=== PATIENT | male | born 1990 | race Caucasian/White ===

== ENCOUNTER 2019-02-19 06:01 | Emergency (ER) | payer BC ==
[2019-02-19] MEDS ORDERED: Sodium Chloride 0.9% 1,000 ML IV ONE (06:06)
[2019-02-19] MEDS ORDERED: Ondansetron 4 MG/2 ML SDV IVPUSH ONE (06:06)
[2019-02-19] MEDS ORDERED: Ketorolac 30 MG/ML SDV IVPUSH ONE (06:06)
[2019-02-19 06:31] LABS: BLOOD UREA NITROGEN,BUN 12 mg/dL (7.0-18.0); CARBON DIOXIDE,CO2 23.5 mmol/L (21.0-32.0); CHLORIDE,CL 101 mmol/L (98-107); GLUCOSE RANDOM 122 mg/dL (74-106); LIPASE 85 U/L (73-393); POTASSIUM,K 3.9 mmol/L (3.5-5.1); SODIUM,NA 140 mmol/L (136-148)
--- NOTE | 2019-02-19 06:48 | EDM.PDOC ---
<Silverio Pavon J - Last Filed: 02/19/19 06:45> ED HPI GENERAL MEDICAL PROBLEM - General Chief Complaint: Abdominal Pain Stated Complaint: LOWER RIGHT ABDOMINAL PAIN Time Seen by Provider: 02/19/19 10:20 - History of Present Illness INITIAL COMMENTS - FREE TEXT/NARRATIVE: HISTORY AND PHYSICAL: History of present illness: Patient's 28-year-old white male presents with a concern of right upper abdominal pain 1 day he's had associated nausea denies vomiting denies diarrhea denies trauma denies prior abdominal surgery has been no fever no chills he denies history of known gallbladder disease denies history of pancreatitis Review of systems: As per history of present illness and below otherwise all systems reviewed and negative. Past medical history: As per history of present illness and as reviewed below otherwise noncontributory. Surgical history: As per history of present illness and as reviewed below otherwise noncontributory. Social history: No reported history of drug or alcohol abuse. Family history: As per history of present illness and as reviewed below otherwise noncontributory. Physical exam: HEENT: Atraumatic, normocephalic, pupils reactive, negative for conjunctival pallor or scleral icterus, mucous membranes moist, throat clear, neck supple, nontender, trachea midline. Lungs: Clear to auscultation, breath sounds equal bilaterally, chest nontender. Heart: S1S2, regular, negative for clicks, rubs, or JVD. Abdomen: Soft, nondistended, tenderness to deep palpation in the right upper quadrant no rebound Negative for masses or hepatosplenomegaly. Negative for costovertebral tenderness. Pelvis: Stable nontender. Genitourinary: Deferred. Rectal: Deferred. Extremities: Atraumatic, negative for cords or calf pain. Neurovascular unremarkable. Neuro: Awake, alert, oriented. Cranial nerves II through XII unremarkable. Cerebellum unremarkable. Motor and sensory unremarkable throughout. Exam nonfocal. Diagnostics: CBC CMP lipase UA right upper quadrant ultrasound Therapeutics: Saline 1 L bolus Toradol 30 mg IV Zofran 4 mg IV Impression: #1 right-sided abdominal pain Definitive disposition and diagnosis as appropriate pending reevaluation and review of above. RUQ Pain Score (Numeric/FACES): 4 - Related Data Allergies Allergy/AdvReac Type Severity Reaction Status Date / Time No Known Allergies Allergy Verified 02/19/19 06:16 Home Meds: Home Meds . [No Known Home Meds] 02/19/19 [History] Past Medical History - Past Health History Medical/Surgical History: Denies Medical/Surgical History Social & Family History - Family History Family Medical History: Noncontributory - Tobacco Use Smoking Status *Q: Never Smoker Second Hand Smoke Exposure: No - Caffeine Use Caffeine Use: Reports: None - Recreational Drug Use Recreational Drug Use: No ED ROS GENERAL - Review of Systems Review Of Systems: ROS reveals no pertinent complaints other than HPI. ED EXAM, GENERAL - Physical Exam Exam: See Below (See dictation) Course - Vital Signs Last Recorded V/S: Last Vital Signs Temp 97.3 F 02/19/19 06:13 Pulse 63 02/19/19 06:29 Resp 15 02/19/19 06:29 BP 148/74 H 02/19/19 06:13 Pulse Ox 98 02/19/19 06:29 - Orders/Labs/Meds Orders: Active Orders 24 hr Category Date Time Status Abdomen Pelvis w Cont [CT] Stat Exams 02/19/19 07:27 Taken Saline Lock Insert [OM.PC] Stat Oth 02/19/19 06:06 Ordered Labs: Laboratory Tests 02/19/19 02/19/19 02/19/19 Range/Units 06:00 06:00 08:05 WBC 11.21 H (4.0-11.0) K/uL RBC 5.82 (4.50-5.90) M/uL Hgb 16.7 (13.0-17.0) g/dL Hct 48.1 (38.0-50.0) % MCV 82.6 (80.0-98.0) fL MCH 28.7 (27.0-32.0) pg MCHC 34.7 (31.0-37.0) g/dL RDW Std Deviation 39.9 (28.0-62.0) fl RDW Coeff of Jose 13 (11.0-15.0) % Plt Count 249 (150-400) K/uL MPV 8.80 (7.40-12.00) fL Neut % (Auto) 51.3 (48.0-80.0) % Lymph % (Auto) 42.2 H (16.0-40.0) % [place] % (Auto) 6.2 (0.0-15.0) % Eos % (Auto) 0.1 (0.0-7.0) % Baso % (Auto) 0.2 (0.0-1.5) % Neut # (Auto) 5.8 H (1.4-5.7) K/uL Lymph # (Auto) 4.7 H (0.6-2.4) K/uL [place] # (Auto) 0.7 (0.0-0.8) K/uL Eos # (Auto) 0.0 (0.0-0.7) K/uL Baso # (Auto) 0.0 (0.0-0.1) K/uL Nucleated RBC % 0.0 /100WBC Nucleated RBCs # 0 K/uL Sodium 140 (136-148) mmol/L Potassium 3.9 (3.5-5.1) mmol/L Chloride 101 (98-107) mmol/L Carbon Dioxide 23.5 (21.0-32.0) mmol/L BUN 12 (7.0-18.0) mg/dL Creatinine 1.1 (0.8-1.3) mg/dL Est Cr Clr Drug Dosing 91.03 mL/min Estimated GFR (MDRD) > 60.0 ml/min Glucose 122 H (74-106) mg/dL Calcium 9.3 (8.5-10.1) mg/dL Total Bilirubin 0.6 (0.2-1.0) mg/dL AST 28 (15-37) IU/L ALT 65 H (14-63) IU/L Alkaline Phosphatase 74 (46-116) U/L Total Protein 8.9 H (6.4-8.2) g/dL Albumin 4.7 (3.4-5.0) g/dL Globulin 4.2 H (2.6-4.0) g/dL Albumin/Globulin Ratio 1.1 (0.9-1.6) Lipase 85 (73-393) U/L Urine Color YELLOW Urine Appearance CLEAR Urine pH 7.0 (5.0-8.0) Ur Specific [place]yle 1.015 (1.001-1.035) Urine Protein NEGATIVE (NEGATIVE) mg/dL Urine Glucose (UA) NEGATIVE (NEGATIVE) mg/dL Urine Ketones >=80 (NEGATIVE) mg/dL Urine Occult Blood NEGATIVE (NEGATIVE) Urine Nitrite NEGATIVE (NEGATIVE) Urine Bilirubin SMALL H (NEGATIVE) Urine Ictotest NEGATIVE Urine Urobilinogen 0.2 (<2.0) EU/dL Ur Leukocyte Esterase NEGATIVE (NEGATIVE) Meds: Medications Discontinued Medications Generic Name Dose Route Start Last Admin Trade Name Mathew PRN Reason Stop Dose Admin Sodium Chloride 1,000 mls @ 999 mls/hr 02/19/19 06:06 02/19/19 06:15 Normal Saline IV 02/19/19 07:06 999 mls/hr BOLUS ONE Administration Iopamidol 100 ml 02/19/19 08:06 02/19/19 08:07 Isovue Multipack-370 (76%) IVPUSH 02/19/19 08:07 100 ml ONETIME STA Administration Ketorolac Tromethamine 30 mg 02/19/19 06:06 02/19/19 06:14 Toradol IVPUSH 02/19/19 06:07 30 mg ONETIME ONE Administration Ondansetron HCl 4 mg 02/19/19 06:06 02/19/19 06:14 Zofran IVPUSH 02/19/19 06:07 4 mg ONETIME ONE Administration Departure - Departure Disposition: Home, Self-Care 01 Clinical Impression: Abdominal pain - Discharge Information Referrals: PCP,None [Primary Care Provider] - Forms: ED Department Discharge Additional Instructions: Medication as prescribed Return if symptoms persist or worsen Knott diet as discussed ER referral for general surgery for consideration of HIDA scan [facility] - General Surgery [address], [address] [place] [address] The following information is given to patients seen in the emergency department who are being discharged to home. This information is to outline your options for follow-up care. We provide all patients seen in our emergency department with a follow-up referral. The need for follow-up, as well as the timing and circumstances, are variable depending upon the specifics of your emergency department visit. If you don't have a primary care physician on staff, we will provide you with a referral. We always advise you to contact your personal physician following an emergency department visit to inform them of the circumstance of the visit and for follow-up with them and/or the need for any referrals to a consulting specialist. The emergency department will also refer you to a specialist when appropriate. This referral assures that you have the opportunity for follow-up care with a specialist. All of these measure are taken in an effort to provide you with optimal care, which includes your follow-up. Under all circumstances we always encourage you to contact your private physician who remains a resource for coordinating your care. When calling for follow-up care, please make the office aware that this follow-up is from your recent emergency room visit. If for any reason you are refused follow-up, please contact the [facility] emergency department at and asked to speak to the emergency department charge nurse. - My Orders Last 24 Hours: My Active Orders 02/19/19 07:27 Abdomen Pelvis w Cont [CT] Stat - Assessment/Plan Last 24 Hours: My Active Orders 02/19/19 07:27 Abdomen Pelvis w Cont [CT] Stat <Wilder Martínez - Last Filed: 02/19/19 10:20> ED HPI GENERAL MEDICAL PROBLEM - General Source of Information: Reports: Patient - History of Present Illness INITIAL COMMENTS - FREE TEXT/NARRATIVE: I've seen the patient in follow-up at shift change follow-up the CT abdomen pelvis ordered and followed as well as followed ultrasound right upper quadrant which was normal per radiology, essentially normal CT as well only finding is that of small fat-containing. 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
--- NOTE | 2019-02-19 07:18 | US ---
INDICATION: Right upper quadrant abdomen pain TECHNIQUE: Ultrasound abdomen limited. Sonographic images of the right upper quadrant were obtained using hess-scale and color Doppler images. COMPARISON: None FINDINGS: Liver: Normal in size and echotexture. No masses. No intrahepatic biliary dilatation. Gallbladder: No stones or sludge. Normal wall thickness. No pericholecystic fluid. Common bile duct: 3 mm. Pancreas: Normal. Right kidney: Normal in size. Normal echotexture and cortex. No suspicious masses, stones, or hydronephrosis. Vasculature: Proximal abdominal aorta and IVC are normal. IMPRESSION: Unremarkable right upper quadrant ultrasound. Dictated by Justice Cotto MD @ Feb 19 2019 7:14AM Signed by Dr. Justice Cotto @ Feb 19 2019 7:16AM
[2019-02-19] MEDS ORDERED: Iopamidol 755 MG/ML 500 ML Multipack Bottle IVPUSH STA (08:06)
--- NOTE | 2019-02-20 11:13 | CT ---
CT abdomen and pelvis Technique: Multiple axial sections were obtained from above the dome of the diaphragm inferiorly through the pubic symphysis. Intravenous contrast was utilized. No oral contrast has been given. Comparison: No prior abdominal imaging is available. Findings: Visualized lung bases show nothing acute. Liver shows no focal parenchymal abnormality. Gallbladder contains no calcified gallstones. Spleen appears within normal limits. Adrenal glands show no nodule. Pancreas appears within normal limits. Kidneys show symmetric contrast enhancement without hydronephrosis or mass. No ureteral dilatation is seen. Aorta shows no aneurysm. No retroperitoneal adenopathy or mesenteric abnormalities are seen. No pelvic mass or adenopathy is seen. Appendix is seen which is felt to be within normal limits. No bowel dilatation is seen. No free fluid or inflammatory change is seen. Small fat-containing umbilical hernia is noted. Bone window settings were reviewed which show no acute osseous abnormality. Impression: 1. Small fat-containing umbilical hernia. 2. No additional abnormality is identified on CT study of the abdomen and pelvis. Nothing acute is appreciated. Diagnostic code #2 MTDD
== END 2019-02-19 10:40 | disposition home or self-care (01) ==
LOC: MW.ED 06:01
DX: R10.11 Right upper quadrant pain (principal)
CPT/HCPCS: 36415; 74177; 76705; 80053; 81003; 83690; 85025; 96361; 96374; 96375; 99284; J1885; J2405; J7040; Q9967

== ENCOUNTER 2019-02-19 17:55 | Day surgery (SDC) | payer BC ==
[2019-02-19] MEDS ORDERED: Sodium Chloride 0.9% 1,000 ML IV ONE (18:13)
[2019-02-19] MEDS ORDERED: Ondansetron 4 MG/2 ML SDV IVPUSH ONE (18:13)
--- NOTE | 2019-02-19 18:18 | EDM.PDOC ---
ED HPI GENERAL MEDICAL PROBLEM - General Chief Complaint: Abdominal Pain Stated Complaint: STOMACH PAIN AND VOMITING Time Seen by Provider: 02/19/19 18:18 Source of Information: Reports: Patient - History of Present Illness INITIAL COMMENTS - FREE TEXT/NARRATIVE: HISTORY AND PHYSICAL: History of present illness: Patient was seen with diffuse abdominal pain this morning with a focus in the right side on deep palpation however pain improved with Toradol I was discharged after normal CT and ultrasound however he returns with vomiting and pain has localized in the right lower quadrant with no fever however vomiting no chills or sweats no chest pain shortness breath headache dizziness palpitation Review of systems: As per history of present illness and below otherwise all systems reviewed and negative. Past medical history: As per history of present illness and as reviewed below otherwise noncontributory. Surgical history: As per history of present illness and as reviewed below otherwise noncontributory. Social history: No reported history of drug or alcohol abuse. Family history: As per history of present illness and as reviewed below otherwise noncontributory. Physical exam: HEENT: Atraumatic, normocephalic, pupils reactive, negative for conjunctival pallor or scleral icterus, mucous membranes moist, throat clear, neck supple, nontender, trachea midline. Lungs: Clear to auscultation, breath sounds equal bilaterally, chest nontender. Heart: S1S2, regular, negative for clicks, rubs, or JVD. Abdomen: Soft, nondistendtender in the right lower quadrant on light palpation with guarding so well sign is positivetive for masses or hepatosplenomegaly. Negative for costovertebral tenderness. Pelvis: Stable nontender. Genitourinary: Deferred. Rectal: Deferred. Extremities: Atraumatic, negative for cords or calf pain. Neurovascular unremarkable. Neuro: Awake, alert, oriented. Cranial nerves II through XII unremarkable. Cerebellum unremarkable. Motor and sensory unremarkable throughout. Exam nonfocal. Diagnostics: cbc, blood cultures ] Therapeutics: [ saline ] Zofran surgery Impression right Lower quadrant pain Definitive disposition and diagnosis as appropriate pending reevaluation and review of above. lower R abdomen and mid upper abdomen Pain Score (Numeric/FACES): 7 - Related Data Allergies Allergy/AdvReac Type Severity Reaction Status Date / Time No Known Allergies Allergy Verified 02/19/19 18:12 Home Meds: Home Meds Ciprofloxacin [Ciprofloxacin HCl] 500 mg PO BID 02/19/19 [History] Ketorolac [Toradol] 10 mg PO TID PRN 02/19/19 [History] Ondansetron [Zofran] 4 mg PO Q8HR PRN 02/19/19 [History] Past Medical History - Past Health History Medical/Surgical History: Denies Medical/Surgical History Social & Family History - Family History Family Medical History: Noncontributory - Caffeine Use Caffeine Use: Reports: None ED ROS GENERAL - Review of Systems Review Of Systems: See Below ED EXAM, GENERAL - Physical Exam Exam: See Below Course - Vital Signs Last Recorded V/S: Last Vital Signs Temp 97.9 F 02/19/19 18:08 Pulse 47 L 02/19/19 18:08 Resp 20 02/19/19 18:08 BP 136/80 02/19/19 18:08 Pulse Ox 100 02/19/19 18:08 - Orders/Labs/Meds Orders: Active Orders 24 hr Category Date Time Status Notify Provider Consults [RC] ASDIRECTED Care 02/19/19 18:17 Active Consult to Physician [CONS] Stat Cons 02/19/19 18:16 Active CULTURE BLOOD [BC] Stat Lab 02/19/19 18:16 Ordered CULTURE BLOOD [BC] Stat Lab 02/19/19 18:50 Received Sodium Chloride 0.9% [Normal Saline] 1,000 ml Med 02/19/19 18:13 Active IV STAT cefOXitin [Mefoxin in Dextrose,Iso-Osm 2 GM/50 ML] 2 gm Med 02/19/19 19:06 Active Premix Bag 1 bag IV ONETIME Blood Culture x2 Reflex Set [OM.PC] Stat Oth 02/19/19 18:16 Ordered Medication Orders Sodium Chloride (Normal Saline) 1,000 mls @ 999 mls/hr IV STAT ONE Stop: 02/19/19 19:13 Last Admin: 02/19/19 18:34 Dose: 999 mls/hr Cefoxitin Sodium 2 gm/ Premix 50 mls @ 100 mls/hr IV ONETIME ONE Stop: 02/19/19 19:35 Labs: Laboratory Tests 02/19/19 Range/Units 18:30 WBC 11.39 H (4.0-11.0) K/uL RBC 5.68 (4.50-5.90) M/uL Hgb 16.2 (13.0-17.0) g/dL Hct 47.3 (38.0-50.0) % MCV 83.3 (80.0-98.0) fL MCH 28.5 (27.0-32.0) pg MCHC 34.2 (31.0-37.0) g/dL RDW Std Deviation 41.1 (28.0-62.0) fl RDW Coeff of Jose 14 (11.0-15.0) % Plt Count 264 (150-400) K/uL MPV 8.90 (7.40-12.00) fL Neut % (Auto) 57.9 (48.0-80.0) % Lymph % (Auto) 35.9 (16.0-40.0) % [place] % (Auto) 5.8 (0.0-15.0) % Eos % (Auto) 0.2 (0.0-7.0) % Baso % (Auto) 0.2 (0.0-1.5) % Neut # (Auto) 6.6 H (1.4-5.7) K/uL Lymph # (Auto) 4.1 H (0.6-2.4) K/uL [place] # (Auto) 0.7 (0.0-0.8) K/uL Eos # (Auto) 0.0 (0.0-0.7) K/uL Baso # (Auto) 0.0 (0.0-0.1) K/uL Nucleated RBC % 0.0 /100WBC Nucleated RBCs # 0 K/uL Meds: Medications Generic Name Dose Route Start Last Admin Trade Name Freq PRN Reason Stop Dose Admin Sodium Chloride 1,000 mls @ 999 mls/hr 02/19/19 18:13 02/19/19 18:34 Normal Saline IV 02/19/19 19:13 999 mls/hr STAT ONE Administration Cefoxitin Sodium 2 gm/ Premix 50 mls @ 100 mls/hr 02/19/19 19:06 IV 02/19/19 19:35 ONETIME ONE Discontinued Medications Generic Name Dose Route Start Last Admin Trade Name Freq PRN Reason Stop Dose Admin Ondansetron HCl 8 mg 02/19/19 18:13 02/19/19 18:32 Zofran IVPUSH 02/19/19 18:14 8 mg ONETIME ONE Administration Departure - Departure Time of Disposition: 19:12 Disposition: Refer to Observation Condition: Fair Clinical Impression: Right lower quadrant pain - Discharge Information Referrals: PCP,Unknown [Primary Care Provider] - Forms: ED Department Discharge - My Orders Last 24 Hours: My Active Orders 02/19/19 18:13 Sodium Chloride 0.9% [Normal Saline] 1,000 ml IV STAT 02/19/19 18:16 Consult to Physician [CONS] Stat CULTURE BLOOD [BC] Stat Blood Culture x2 Reflex Set [OM.PC] Stat 02/19/19 18:17 Notify Provider Consults [RC] ASDIRECTED 02/19/19 18:50 CULTURE BLOOD [BC] Stat - Assessment/Plan Last 24 Hours: My Active Orders 02/19/19 18:13 Sodium Chloride 0.9% [Normal Saline] 1,000 ml IV STAT 02/19/19 18:16 Consult to Physician [CONS] Stat CULTURE BLOOD [BC] Stat Blood Culture x2 Reflex Set [OM.PC] Stat 02/19/19 18:17 Notify Provider Consults [RC] ASDIRECTED 02/19/19 18:50 CULTURE BLOOD [BC] Stat
[2019-02-19] MEDS ORDERED: cefOXitin 2 GM in Premix Bag 1 BAG IV ONE (19:06)
--- NOTE | 2019-02-19 19:12 | PCM.PREANE ---
Preanesthetic Assessment - Anesthesia/Transfusion/Family Hx Anesthesia History: No Prior Anesthesia Family History of Anesthesia Reaction: No - Review of Systems General: No Symptoms Pulmonary: No Symptoms Cardiovascular: No Symptoms Gastrointestinal: Nausea, Vomiting Neurological: No Symptoms Other: Reports: None - Physical Assessment NPO Status Date: 02/19/19 NPO Status Time: 17:00 (water) Vital Signs: Last Vital Signs Temp 36.6 C 02/19/19 18:08 Pulse 47 L 02/19/19 18:08 Resp 20 02/19/19 18:08 BP 136/80 02/19/19 18:08 Pulse Ox 100 02/19/19 18:08 Height: 1.65 m Weight: 90.265 kg ASA Class: 2E Mental Status: Alert & Oriented x3 Airway Class: Mallampati = 2 Dentition: Reports: Normal Dentition Thyro-Mental Finger Breadths: 3 Mouth Opening Finger Breadths: 2 ROM/Head Extension: Full Lungs: Clear to Auscultation, Normal Respiratory Effort Cardiovascular: Regular Rate, Regular Rhythm - Lab Values: Laboratory Last Values WBC 11.39 K/uL (4.0-11.0) H 02/19/19 18:30 RBC 5.68 M/uL (4.50-5.90) 02/19/19 18:30 Hgb 16.2 g/dL (13.0-17.0) 02/19/19 18:30 Hct 47.3 % (38.0-50.0) 02/19/19 18:30 MCV 83.3 fL (80.0-98.0) 02/19/19 18:30 MCH 28.5 pg (27.0-32.0) 02/19/19 18:30 MCHC 34.2 g/dL (31.0-37.0) 02/19/19 18:30 RDW Std Deviation 41.1 fl (28.0-62.0) 02/19/19 18:30 RDW Coeff of Jose 14 % (11.0-15.0) 02/19/19 18:30 Plt Count 264 K/uL (150-400) 02/19/19 18:30 MPV 8.90 fL (7.40-12.00) 02/19/19 18:30 Neut % (Auto) 57.9 % (48.0-80.0) 02/19/19 18:30 Lymph % (Auto) 35.9 % (16.0-40.0) 02/19/19 18:30 [place] % (Auto) 5.8 % (0.0-15.0) 02/19/19 18:30 Eos % (Auto) 0.2 % (0.0-7.0) 02/19/19 18:30 Baso % (Auto) 0.2 % (0.0-1.5) 02/19/19 18:30 Neut # (Auto) 6.6 K/uL (1.4-5.7) H 02/19/19 18:30 Lymph # (Auto) 4.1 K/uL (0.6-2.4) H 02/19/19 18:30 [place] # (Auto) 0.7 K/uL (0.0-0.8) 02/19/19 18:30 Eos # (Auto) 0.0 K/uL (0.0-0.7) 02/19/19 18:30 Baso # (Auto) 0.0 K/uL (0.0-0.1) 02/19/19 18:30 Nucleated RBC % 0.0 /100WBC 02/19/19 18:30 Nucleated RBCs # 0 K/uL 02/19/19 18:30 - Allergies Allergies/Adverse Reactions: Allergies Allergy/AdvReac Type Severity Reaction Status Date / Time No Known Allergies Allergy Verified 02/19/19 18:12 - Acknowledgements Anesthesia Type Planned: General Anesthesia Pt an Appropriate Candidate for the Planned Anesthesia: Yes Alternatives and Risks of Anesthesia Discussed w Pt/Guardian: Yes Pt/Guardian Understands and Agrees with Anesthesia Plan: Yes PreAnesthesia Questionnaire - Past Health History Medical/Surgical History: Denies Medical/Surgical History HEENT History: Reports: None Cardiovascular History: Reports: None Respiratory History: Reports: None Gastrointestinal History: Reports: None Genitourinary History: Reports: None Musculoskeletal History: Reports: None Endocrine/Metabolic History: Reports: Obesity/BMI 30+ - Past Surgical History Other Musculoskeletal Surgeries/Procedures:: left wrist procedure - HOME MEDS Home Medications: Home Meds Ciprofloxacin [Ciprofloxacin HCl] 500 mg PO BID 02/19/19 [History] Ketorolac [Toradol] 10 mg PO TID PRN 02/19/19 [History] Ondansetron [Zofran] 4 mg PO Q8HR PRN 02/19/19 [History] - CURRENT (IN HOUSE) MEDS Current Meds: Current Medications Sodium Chloride (Normal Saline) 1,000 mls @ 999 mls/hr IV STAT ONE Stop: 02/19/19 19:13 Last Admin: 02/19/19 18:34 Dose: 999 mls/hr Cefoxitin Sodium 2 gm/ Premix 50 mls @ 100 mls/hr IV ONETIME ONE Stop: 02/19/19 19:35 Discontinued Medications Ondansetron HCl (Zofran) 8 mg IVPUSH ONETIME ONE Stop: 02/19/19 18:14 Last Admin: 02/19/19 18:32 Dose: 8 mg
[2019-02-19] MEDS ORDERED: Lactated Ringers 1,000 ML IV SCH ×2 (19:15→21:30)
--- NOTE | 2019-02-19 19:21 | PCM.CONS ---
H&P History of Present Illness - General Date of Service: 02/19/19 Admit Problem/Dx: Admission Diagnosis/Problem Admission Diagnosis/Problem Abdominal pain Source of Information: Patient, Family History Limitations: Reports: No Limitations - History of Present Illness Initial Comments - Free Text/Narative: Patient is a 28-year-old gentleman, whom I have been asked to see regarding persistent and worsening right lower quadrant pain. Patient states the pain started yesterday and was located in both the right upper and right lower quadrants. He was seen in the emergency room about 5:[address] scan did not reveal any acute intra-abdominal pathology. The patient however states he's had worsening right lower quadrant pain with nausea, vomiting and anorexia. He is not able to keep liquids down. He does also notes discomfort when he tries to stand up straight or walk. He is not able to stand up straight when he walks. On the ride into town if they hit a bump in the road, the pain was much worse. 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 Symptom Onset Date: 02/18/19 Duration of Symptoms: Reports: Day(s):, Constant, Getting Worse Location: Reports: Abdomen Quality: Reports: Pressure Improves with: Reports: Rest Worsens with: Reports: Movement Context: Reports: Sick Contact, Activity/Exercise, Exertion Associated Symptoms: Reports: Loss of Appetite, Nausea/Vomiting. Denies: Fever/ Chills lower R abdomen and mid upper abdomen Pain Score (Numeric/FACES): 7 - Related Data Allergies/Adverse Reactions: Allergies Allergy/AdvReac Type Severity Reaction Status Date / Time No Known Allergies Allergy Verified 02/19/19 18:12 Home Medications: Home Meds Ciprofloxacin [Ciprofloxacin HCl] 500 mg PO BID 02/19/19 [History] Ketorolac [Toradol] 10 mg PO TID PRN 02/19/19 [History] Ondansetron [Zofran] 4 mg PO Q8HR PRN 02/19/19 [History] Past Medical History - Past Health History Medical/Surgical History: Denies Medical/Surgical History Endocrine/Metabolic History: Reports: Obesity/BMI 30+ Social & Family History - Family History Family Medical History: Noncontributory - Caffeine Use Caffeine Use: Reports: None H&P Review of Systems - Review of Systems: Review Of Systems: See Below General: Reports: Decreased Appetite. Denies: Fever, Chills, Diaphoresis, Weight Gain HEENT: Reports: No Symptoms Pulmonary: Denies: Shortness of Breath, Wheezing Cardiovascular: Denies: Chest Pain Gastrointestinal: Reports: Abdominal Pain, Anorexia, Decreased Appetite, Nausea , Vomiting Genitourinary: Denies: Dysuria, Frequency, Burning, Pain, Urgency Musculoskeletal: Reports: No Symptoms Skin: Reports: No Symptoms Psychiatric: Denies: Confusion, Depression, Anxiety Neurological: Reports: No Symptoms Hematologic/Lymphatic: Denies: Anemia, Easy Bleeding Immunologic: Reports: No Symptoms Exam - Exam Exam: See Below - Vital Signs Vital Signs: Last Vital Signs Temp 97.9 F 02/19/19 18:08 Pulse 47 L 02/19/19 18:08 Resp 20 02/19/19 18:08 BP 136/80 02/19/19 18:08 Pulse Ox 100 02/19/19 18:08 Weight: 199 lb - Exam General: Alert, Oriented, Cooperative, Mild Distress HEENT: Conjunctiva Clear, EACs Clear, Nares Patent, Pupils Equal, Pupils Reactive, Other (Patient has a prominent malar flush.). No: Scleral Icterus Neck: Supple, Trachea Midline Lungs: Clear to Auscultation, Normal Respiratory Effort. No: Crackles, Rales, Rhonchi, Rub Cardiovascular: Regular Rate, Regular Rhythm, Normal S1, Normal S2, Bradycardia. No: Tachycardia GI/Abdominal Exam: Soft, No Distention, No Mass, Rebound, Tender, Abnormal Bowel Sounds (Hypoactive). No: Guarding, Rigid (Male) Exam: No Hernia Rectal (Males) Exam: Deferred Back Exam: Normal Inspection, Full Range of Motion Extremities: Normal Inspection, Normal Range of Motion Peripheral Pulses: 4+: Posterior Tibial (L), Posterior Tibial (R), Dorsalis Pedis (L), Dorsalis Pedis (R) Skin: Warm, Dry, Intact Psychiatric: Alert, Normal Affect, Normal Mood - Patient Data Lab Results Last 24 hrs: Laboratory Results - last 24 hr 02/19/19 Range/Units 18:30 WBC 11.39 H (4.0-11.0) K/uL RBC 5.68 (4.50-5.90) M/uL Hgb 16.2 (13.0-17.0) g/dL Hct 47.3 (38.0-50.0) % MCV 83.3 (80.0-98.0) fL MCH 28.5 (27.0-32.0) pg MCHC 34.2 (31.0-37.0) g/dL RDW Std Deviation 41.1 (28.0-62.0) fl RDW Coeff of Jose 14 (11.0-15.0) % Plt Count 264 (150-400) K/uL MPV 8.90 (7.40-12.00) fL Neut % (Auto) 57.9 (48.0-80.0) % Lymph % (Auto) 35.9 (16.0-40.0) % [place] % (Auto) 5.8 (0.0-15.0) % Eos % (Auto) 0.2 (0.0-7.0) % Baso % (Auto) 0.2 (0.0-1.5) % Neut # (Auto) 6.6 H (1.4-5.7) K/uL Lymph # (Auto) 4.1 H (0.6-2.4) K/uL [place] # (Auto) 0.7 (0.0-0.8) K/uL Eos # (Auto) 0.0 (0.0-0.7) K/uL Baso # (Auto) 0.0 (0.0-0.1) K/uL Nucleated RBC % 0.0 /100WBC Nucleated RBCs # 0 K/uL Result Diagrams: 02/19/19 18:30 Consult PN Assessment/Plan (1) Right lower quadrant pain SNOMED Code(s): 327212648 Code(s): R10.31 - RIGHT LOWER QUADRANT PAIN Priority: High Current Visit : Yes (2) Abdominal pain SNOMED Code(s): 43290923 Code(s): R10.9 - UNSPECIFIED ABDOMINAL PAIN Priority: High Current Visit : No Qualifiers: Abdominal location: right lower quadrant Qualified Code(s): R10.31 - Right lower quadrant pain Problem List Initiated/Reviewed/Updated: Yes My Orders Last 24 Hours: My Active Orders 02/19/19 19:06 cefOXitin [Mefoxin in Dextrose,Iso-Osm 2 GM/50 ML] 2 gm Premix Bag 1 bag IV ONETIME 02/19/19 19:15 Lactated Ringers @ 125 MLS/HR(1000ml) Lactated Ringers [Ringers, Lactated] 1, 000 ml IV ASDIRECTED Resuscitation Status Routine 02/19/19 19:16 Antiembolic Devices [RC] PER UNIT ROUTINE Insert Urinary Catheter [OM.PC] Timed Oxygen Therapy [RC] ASDIRECTED RT Incentive Spirometry [RC] Q1HWA Skin Preparation [RC] .PREOP Urinary Catheter Assessment [RC] ASDIRECTED Urinary Catheter Assessment [RC] ASDIRECTED Urinary Catheter Assessment [RC] ASDIRECTED Vital Signs [RC] PER UNIT ROUTINE Antiembolic Hose [OM.PC] Routine 02/19/19 Dinner Nothing Per Oral Diet [DIET] Plan: Clinically his examination is consistent with appendicitis. In addition to the above-noted findings, he has a positive Rovsing's sign. Laparoscopic appendectomy, possible open appendectomy. Both operative procedures, along with the risks, including, but not limited to, bleeding, infection, pneumonia, deep venous thrombosis, pulmonary emboli, myocardial infarction, and adjacent organ injury have been reviewed with the patient who voices understanding, offers no questions and agrees to proceed.
[2019-02-19] MEDS ORDERED: fentaNYL 100 MCG/2 ML SDV ONE (19:40)
[2019-02-19] MEDS ORDERED: Propofol 200 MG/20 ML SDV ONE (19:40)
[2019-02-19] MEDS ORDERED: Lidocaine 2% 5 ML SDV ONE (19:41)
[2019-02-19] MEDS ORDERED: Ondansetron 4 MG/2 ML SDV ONE (19:41)
[2019-02-19] MEDS ORDERED: Rocuronium 100 MG/10 ML Syringe ONE (19:41)
[2019-02-19] MEDS ORDERED: Ketorolac 30 MG/ML SDV ONE (19:41)
[2019-02-19] MEDS ORDERED: Midazolam 1 MG/ML 2 ML SDV ONE (19:41)
[2019-02-19] MEDS ORDERED: ceFAZolin 1 GM Vial ONE (19:42)
[2019-02-19] MEDS ORDERED: Bupivacaine 0.5% 30 ML SDV ONE (19:42)
[2019-02-19] MEDS ORDERED: Dexamethasone 4 MG/ML 5 ML MDV ONE (19:47)
[2019-02-19] MEDS ORDERED: fentaNYL 100 MCG/2 ML SDV IVPUSH PRN (20:43)
[2019-02-19] MEDS ORDERED: Ondansetron 4 MG/2 ML SDV IVPUSH PRN ×2 (20:43→21:27)
[2019-02-19] MEDS ORDERED: HYDROmorphone 2 MG/ML Syringe IVPUSH PRN (20:44)
[2019-02-19] MEDS ORDERED: Glycopyrrolate 0.2 MG/ML SDV ONE (20:49)
[2019-02-19] MEDS ORDERED: Neostigmine Methylsulfate 1 MG/ML 5 ML Syringe ONE (20:49)
[2019-02-19] MEDS ORDERED: Acetaminophen/HYDROcodone 325-5 MG Tab PO PRN (21:27)
[2019-02-19] MEDS ORDERED: Morphine 10 MG/ML Syringe IVPUSH PRN (21:27)
[2019-02-19] MEDS ORDERED: Acetaminophen 325 MG Tab PO PRN (21:27)
--- NOTE | 2019-02-19 21:29 | PCM.OPNOTE ---
- General Post-Op/Procedure Note Date of Surgery/Procedure: 02/19/19 Operative Procedure(s): Laparoscopic appendectomy Pre Op Diagnosis: Acute abdomen Post-Op Diagnosis: Mild early acute tip appendicitis Anesthesia Technique: General ET Tube (ASA IIE) Primary Surgeon: Don Loja Fluid Replacement, Intraop: 800 Output, Urine Amount: 150 EBL in mLs: 5 Condition: Stable Free Text/Narrative:: Intake & Output 02/19/19 02/19/19 02/20/19 11:59 19:59 03:59 Output Total 150 Balance -150 DICTATION [id number] CPT CODE 99696
--- NOTE | 2019-02-19 21:46 | PCM.POSTAN ---
POST ANESTHESIA ASSESSMENT - MENTAL STATUS Mental Status: Alert, Oriented - VITAL SIGNS Vital Signs: Last Vital Signs Temp 36.8 C 02/19/19 21:14 Pulse 50 L 02/19/19 21:34 Resp 18 02/19/19 21:34 BP 129/75 02/19/19 21:34 Pulse Ox 95 02/19/19 21:34 - RESPIRATORY Respiratory Status: Respiratory Rate WNL, Airway Patent, O2 Saturation Stable - CARDIOVASCULAR CV Status: Pulse Rate WNL, Blood Pressure Stable - GASTROINTESTINAL GI Status: No Symptoms - PAIN Pain Score: 0 - POST OP HYDRATION Hydration Status: Adequate & Stable - OBSERVATIONS Free Text/Narrative:: The patient tolerated the procedure well. There were no apparent anesthetic complications at this time. He has no questions at this time. Discharge to floor per criteria.
[2019-02-19] MEDS: cefOXitin 1 GM in Premix Bag 1 BAG IV SCH (21:55)
[2019-02-20] MEDS: cefOXitin 1 GM in Premix Bag 1 BAG IV SCH (03:45)
--- NOTE | 2019-02-20 05:51 | PCM48HPAN ---
Post Anesthesia Note - EVALUATION WITHIN 48HRS OF ANESTHETIC Vital Signs in Normal Range: Yes Patient Participated in Evaluation: Yes Respiratory Function Stable: Yes Airway Patent: Yes Cardiovascular Function Stable: Yes Hydration Status Stable: Yes Pain Control Satisfactory: Yes Nausea and Vomiting Control Satisfactory: Yes Mental Status Recovered: Yes Vital Signs: Last Vital Signs Temp 37.1 C 02/20/19 04:00 Pulse 77 02/20/19 04:00 Resp 14 02/20/19 04:00 BP 121/69 02/20/19 04:00 Pulse Ox 96 02/20/19 04:00 - COMMENTS/OBSERVATIONS Free Text/Narrative:: There were no apparent anesthetic complications at this time. The patient is very satisfied with his care, and has no questions at this time. Discharge per criteria.
--- NOTE | 2019-02-20 11:36 | OR ---
SURGEON: Don Loja M.D. DATE OF PROCEDURE: 02/19/2019 OPERATION PERFORMED: Laparoscopic appendectomy. PRIMARY SURGEON: Don Loja M.D. ANESTHESIA: General endotracheal. ASA CLASSIFICATION: 2E. PREOPERATIVE DIAGNOSIS: Acute abdomen. POSTOPERATIVE DIAGNOSIS: Mild early acute tip appendicitis. INTRAOPERATIVE FLUID REPLACEMENT: 800 mL of crystalloid. INTRAOPERATIVE URINE OUTPUT: 150 mL. ESTIMATED BLOOD LOSS: 5 mL. DESCRIPTION OF PROCEDURE: The patient was taken to the operating room and placed on the operating table in the supine position. A time-out was called for appropriate identification of the patient and procedure. Sequential compression boots were placed. Following satisfactory attainment of general endotracheal anesthesia, a Ku catheter was placed in the patient's urinary bladder. The abdomen was prepped with DuraPrep solution and sterile drapes were applied. The skin above the umbilicus was infiltrated with 0.5% Marcaine solution. The skin incision was made and deepened through the subcutaneous tissue, obtaining hemostasis with the use of electrocautery. A Veress needle was introduced into the peritoneal cavity. Saline drop test was positive. Carbon dioxide pneumoperitoneum was established with the release set at 13 cm of water. Once a satisfactory pneumoperitoneum was established, a 5 mm camera and port were placed through this incision. The patient was now positioned with his head down and rolled to the left. Under camera vision, 5 mm left lower quadrant port and 12 mm suprapubic port were placed. Each incision had preemptively been infiltrated with 0.5% Marcaine solution. The appendix was now grasped. There were some very minimal inflammatory changes at the tip of the appendix, but for the most part the appendix grossly appeared normal. The mesoappendix was taken down with the Harmonic scalpel. The appendix was then doubly ligated at its base with 0 PDS endo-loops. The appendix was transected using the Harmonic Scalpel and immediately placed in the EndoCatch. This was maintained in situ. The right lower quadrant was inspected for hemostasis. No bleeding was noted. The right lower quadrant was irrigated with 500 mL of sterile saline solution and all fluid was aspirated. Because of the minimal findings, the distal 3 feet of small intestine were gently examined, and I did not see any evidence of a Meckel's diverticulum. No inflammatory changes were noted in the distal small bowel. Certainly, there was no keren complexion, and the small bowel felt smooth and soft. With that, it was felt that this perhaps was an early tip appendicitis, and given the fact that the patient had come back within a 12-hour period with worsening symptoms, it was felt justified. The 12 mm port and EndoCatch containing appendix were removed without difficulty. The left lower quadrant port was removed under camera vision, and finally the supraumbilical camera and port were removed. Wounds were inspected for hemostasis, and small bleeding sites were electrocoagulated. The suprapubic and supraumbilical incisions were closed in 2 layers, approximating the subcutaneous tissue with 3- 0 Vicryl and the skin with subcuticular 4-0 Monocryl. The left lower quadrant port incision was closed with subcuticular 4-0 Monocryl. All incisions were Steri-Stripped with half-inch Steri-Strips. The wounds were then dressed with sterile Tegaderm pads. Sponge, needle, and instrument counts were all correct. Ku catheter was removed prior to emergence from anesthesia. Following emergence from anesthesia and extubation, the patient was taken to recovery room in stable condition. SIVAKUMAR MONTIEL /[id number]
== END 2019-02-20 10:15 | disposition home or self-care (01) ==
LOC: MW.ED 17:55 → MW.SDS 19:15 → MW.MS 19:21 → MW.SDS 02-20 10:15
PROVIDERS: ATTEND Surgery
DX: K38.8 Other specified diseases of appendix (principal)
CPT/HCPCS: 36415; 44970; 85025; 87040; 96361; 96365; 96375; 99285; J0131; J0330; J0694; J1100; J1885; J2001; J2250; J2405; J2704; J3010; J3490; J7040; J7120; J0690

== ENCOUNTER 2019-02-25 05:09 | Observation (INO) | payer BC ==
[2019-02-25] MEDS ORDERED: Sodium Chloride 0.9% 1,000 ML IV ONE (05:24)
[2019-02-25] MEDS ORDERED: Ketorolac 30 MG/ML SDV IVPUSH ONE (05:24)
[2019-02-25] MEDS ORDERED: Ondansetron 4 MG/2 ML SDV IVPUSH ONE (05:24)
[2019-02-25 05:43] LABS: BLOOD UREA NITROGEN,BUN 16 mg/dL (7.0-18.0); CHLORIDE,CL 103 mmol/L (98-107); GLUCOSE RANDOM 122 mg/dL (74-106); POTASSIUM,K 3.9 mmol/L (3.5-5.1); SODIUM,NA 141 mmol/L (136-148)
[2019-02-25] MEDS ORDERED: Iopamidol 755 MG/ML 500 ML Multipack Bottle IVPUSH STA (05:53)
--- NOTE | 2019-02-25 06:16 | CT ---
INDICATION: Appendectomy 02/19/2019. Extreme abdominal pain starting 02/23/2019. TECHNIQUE: CT abdomen and pelvis acquired with 100 cc of Isovue 370 contrast. COMPARISON: 02/19/2019. FINDINGS: Lower chest: Minimal dependent atelectasis. Liver: Unremarkable. Normal in size and attenuation. No masses. Gallbladder and bile ducts: Unremarkable. No stones or inflammation. No biliary dilatation. Pancreas: Unremarkable. No mass or inflammation. Spleen: Unremarkable. Normal in size. No masses. Adrenal glands: Unremarkable. No nodules. Kidneys: Unremarkable. No masses, stones, or hydronephrosis. GI tract: No evidence of small-bowel obstruction. Mild fat stranding in the right lower at the site of prior appendectomy. No loculated drainable fluid collection. Vasculature: Unremarkable. Lymph nodes: No lymphadenopathy. Omentum/Peritoneum/Abdominal Wall: Trace free pelvic fluid. No significant free air. Pelvis: Unremarkable. Bones: Unremarkable for age. IMPRESSION: 1. Mild fat stranding at the site of prior appendectomy. No loculated drainable fluid collection to suggest abscess. 2. Trace free pelvic fluid. Please note that all CT scans at this facility use dose modulation, iterative reconstruction, and/or weight-based dosing when appropriate to reduce radiation dose to as low as reasonably achievable. Dictated by Chadd Vogel MD @ Feb 25 2019 6:05AM Signed by Dr. Chadd Vogel @ Feb 25 2019 6:15AM
[2019-02-25] MEDS ORDERED: HYDROmorphone 1 MG/ML Syringe IVPUSH ONE (06:35)
--- NOTE | 2019-02-25 06:49 | EDM.PDOC ---
<Silverio Pvaon J - Last Filed: 02/25/19 06:46> ED HPI GENERAL MEDICAL PROBLEM - General Chief Complaint: Abdominal Pain Stated Complaint: RECENT APPENDECTOMY- ISSUES Time Seen by Provider: 02/25/19 06:33 - History of Present Illness INITIAL COMMENTS - FREE TEXT/NARRATIVE: HISTORY AND PHYSICAL: History of present illness: Patient is a 28-year-old white male who 6 days status post appendectomy who presents with concern of abdominal pain no reported fever chills Review of systems: As per history of present illness and below otherwise all systems reviewed and negative. Past medical history: As per history of present illness and as reviewed below otherwise noncontributory. Surgical history: As per history of present illness and as reviewed below otherwise noncontributory. Social history: No reported history of drug or alcohol abuse. Family history: As per history of present illness and as reviewed below otherwise noncontributory. Physical exam: HEENT: Atraumatic, normocephalic, pupils reactive, negative for conjunctival pallor or scleral icterus, mucous membranes moist, throat clear, neck supple, nontender, trachea midline. Lungs: Clear to auscultation, breath sounds equal bilaterally, chest nontender. Heart: S1S2, regular, negative for clicks, rubs, or JVD. Abdomen: Soft, nondistended lower abdominal tenderness to palpation with mild guarding no rebound Negative for masses or hepatosplenomegaly. Negative for costovertebral tenderness. Pelvis: Stable nontender. Genitourinary: Deferred. Rectal: Deferred. Extremities: Atraumatic, negative for cords or calf pain. Neurovascular unremarkable. Neuro: Awake, alert, oriented. Cranial nerves II through XII unremarkable. Cerebellum unremarkable. Motor and sensory unremarkable throughout. Exam nonfocal. Diagnostics: CBC CMP UA CT abdomen and pelvis with IV contrast Therapeutics: Saline 1 L bolus Toradol 30 mg IV Zofran 4 mg IV Dilaudid 1 mg IV Impression: #1 6 days status post appendectomy/postoperative pain Definitive disposition and diagnosis as appropriate pending reevaluation and review of above. Upper Abdomen Pain Score (Numeric/FACES): 6 - Related Data Allergies Allergy/AdvReac Type Severity Reaction Status Date / Time No Known Allergies Allergy Verified 02/25/19 05:17 Home Meds: Home Meds Ketorolac [Toradol] 10 mg PO TID PRN 02/19/19 [History] Ondansetron [Zofran] 4 mg PO Q8HR PRN 02/19/19 [History] Past Medical History - Past Health History Medical/Surgical History: Denies Medical/Surgical History HEENT History: Reports: None Cardiovascular History: Reports: None Respiratory History: Reports: None Gastrointestinal History: Reports: None Other Gastrointestinal History: Abdominal pain with vomiting Genitourinary History: Reports: None Musculoskeletal History: Reports: None Psychiatric History: Reports: None Endocrine/Metabolic History: Reports: Obesity/BMI 30+ Hematologic History: Reports: None Immunologic History: Reports: None Oncologic (Cancer) History: Reports: None - Infectious Disease History Infectious Disease History: Reports: Chicken Pox - Past Surgical History Head Surgeries/Procedures: Reports: None GI Surgical History: Reports: Appendectomy Other Musculoskeletal Surgeries/Procedures:: left wrist procedure Social & Family History - Family History Family Medical History: Noncontributory - Tobacco Use Smoking Status *Q: Former Smoker Used Tobacco, but Quit: Yes Month/Year Tobacco Last Used: 2012 - Caffeine Use Caffeine Use: Reports: Coffee, Soda - Recreational Drug Use Recreational Drug Use: No ED ROS GENERAL - Review of Systems Review Of Systems: ROS reveals no pertinent complaints other than HPI. ED EXAM, GENERAL - Physical Exam Exam: See Below (See dictation) Course - Vital Signs Text/Narrative:: Case discussed with Dr. Loja will see patient in the emergency department Last Recorded V/S: Last Vital Signs Temp 97.6 F 02/25/19 05:13 Pulse 76 02/25/19 05:13 Resp 18 02/25/19 05:13 BP 137/71 02/25/19 05:13 Pulse Ox 100 02/25/19 05:13 - Orders/Labs/Meds Orders: Active Orders 24 hr Category Date Time Status Admission Status [Patient Status] [ADT] Stat ADT 02/25/19 07:25 Ordered Notify Provider Consults [RC] ASDIRECTED Care 02/25/19 06:51 Active Consult to Physician [CONS] Stat Cons 02/25/19 06:50 Active Labs: Laboratory Tests 02/25/19 02/25/19 Range/Units 05:20 05:20 WBC 10.80 (4.0-11.0) K/uL RBC 5.90 (4.50-5.90) M/uL Hgb 17.0 (13.0-17.0) g/dL Hct 48.7 (38.0-50.0) % MCV 82.5 (80.0-98.0) fL MCH 28.8 (27.0-32.0) pg MCHC 34.9 (31.0-37.0) g/dL RDW Std Deviation 40.1 (28.0-62.0) fl RDW Coeff of Jose 13 (11.0-15.0) % Plt Count 237 (150-400) K/uL MPV 8.70 (7.40-12.00) fL Neut % (Auto) 58.9 (48.0-80.0) % Lymph % (Auto) 33.3 (16.0-40.0) % [place] % (Auto) 7.2 (0.0-15.0) % Eos % (Auto) 0.3 (0.0-7.0) % Baso % (Auto) 0.3 (0.0-1.5) % Neut # (Auto) 6.4 H (1.4-5.7) K/uL Lymph # (Auto) 3.6 H (0.6-2.4) K/uL [place] # (Auto) 0.8 (0.0-0.8) K/uL Eos # (Auto) 0.0 (0.0-0.7) K/uL Baso # (Auto) 0.0 (0.0-0.1) K/uL Nucleated RBC % 0.0 /100WBC Nucleated RBCs # 0 K/uL Sodium 141 (136-148) mmol/L Potassium 3.9 (3.5-5.1) mmol/L Chloride 103 (98-107) mmol/L Carbon Dioxide 24.0 (21.0-32.0) mmol/L BUN 16 (7.0-18.0) mg/dL Creatinine 1.2 (0.8-1.3) mg/dL Est Cr Clr Drug Dosing 83.44 mL/min Estimated GFR (MDRD) > 60.0 ml/min Glucose 122 H (74-106) mg/dL Calcium 9.4 (8.5-10.1) mg/dL Total Bilirubin 0.6 (0.2-1.0) mg/dL AST 48 H (15-37) IU/L ALT 101 H (14-63) IU/L Alkaline Phosphatase 72 (46-116) U/L Total Protein 8.9 H (6.4-8.2) g/dL Albumin 4.5 (3.4-5.0) g/dL Globulin 4.4 H (2.6-4.0) g/dL Albumin/Globulin Ratio 1.0 (0.9-1.6) Meds: Medications Discontinued Medications Generic Name Dose Route Start Last Admin Trade Name Mathew PRN Reason Stop Dose Admin Hydromorphone HCl 1 mg 02/25/19 06:35 02/25/19 06:39 Dilaudid IVPUSH 02/25/19 06:36 1 mg ONETIME ONE Administration Sodium Chloride 1,000 mls @ 999 mls/hr 02/25/19 05:24 02/25/19 05:31 Normal Saline IV 02/25/19 06:24 999 mls/hr .Bolus ONE Administration Iopamidol 100 ml 02/25/19 05:53 02/25/19 05:54 Isovue Multipack-370 (76%) IVPUSH 02/25/19 05:54 100 ml ONETIME STA Administration Ketorolac Tromethamine 30 mg 02/25/19 05:24 02/25/19 05:31 Toradol IVPUSH 02/25/19 05:25 30 mg ONETIME ONE Administration Ondansetron HCl 4 mg 02/25/19 05:24 02/25/19 05:32 Zofran IVPUSH 02/25/19 05:25 4 mg ONETIME ONE Administration Departure - Departure Time of Disposition: 06:48 Disposition: Refer to Observation Condition: Good Clinical Impression: Postoperative lower abdominal pain, History of appendectomy - Discharge Information Referrals: PCP,None [Primary Care Provider] - Forms: ED Department Discharge - My Orders Last 24 Hours: My Active Orders 02/25/19 07:25 Admission Status [Patient Status] [ADT] Stat - Assessment/Plan Last 24 Hours: My Active Orders 02/25/19 07:25 Admission Status [Patient Status] [ADT] Stat <Wilder Martínez - Last Filed: 02/25/19 07:26> ED ROS GENERAL - Review of Systems Review Of Systems: See Below ED EXAM, GENERAL - Physical Exam Exam: See Below Departure - Departure Condition: Fair
[2019-02-25] MEDS ORDERED: Ondansetron 4 MG/2 ML SDV IVPUSH PRN (07:38)
--- NOTE | 2019-02-25 07:46 | PCM.HP.2 ---
H&P History of Present Illness - General Date of Service: 02/25/19 Admit Problem/Dx: Admission Diagnosis/Problem Admission Diagnosis/Problem Nausea and vomiting Source of Information: Patient, Family History Limitations: Reports: No Limitations - History of Present Illness Initial Comments - Free Text/Narative: 28 y/o male who underwent a laparoscopic appendectomy on 02/19. Patient noted prompt relief of his symptoms after the procedure. He initially did well until last night when he developed nausea & vomiting. No fever, chills or diarrhea. Duration of Symptoms: Reports: Hour(s): Location: Reports: Abdomen Quality: Reports: Pressure Severity: Moderate Improves with: Reports: Rest Worsens with: Reports: Eating Context: Reports: Sick Contact Associated Symptoms: Reports: Nausea/Vomiting Upper Abdomen Pain Score (Numeric/FACES): 6 - Related Data Allergies/Adverse Reactions: Allergies Allergy/AdvReac Type Severity Reaction Status Date / Time No Known Allergies Allergy Verified 02/25/19 05:17 Home Medications: Home Meds Ketorolac [Toradol] 10 mg PO TID PRN 02/19/19 [History] Ondansetron [Zofran] 4 mg PO Q8HR PRN 02/19/19 [History] Past Medical History - Past Health History Medical/Surgical History: Denies Medical/Surgical History HEENT History: Reports: None Cardiovascular History: Reports: None Respiratory History: Reports: None Gastrointestinal History: Reports: None Other Gastrointestinal History: Abdominal pain with vomiting Genitourinary History: Reports: None Musculoskeletal History: Reports: None Psychiatric History: Reports: None Endocrine/Metabolic History: Reports: Obesity/BMI 30+ Hematologic History: Reports: None Immunologic History: Reports: None Oncologic (Cancer) History: Reports: None - Infectious Disease History Infectious Disease History: Reports: Chicken Pox - Past Surgical History Head Surgeries/Procedures: Reports: None GI Surgical History: Reports: Appendectomy Other Musculoskeletal Surgeries/Procedures:: left wrist procedure Social & Family History - Family History Family Medical History: Noncontributory - Tobacco Use Smoking Status *Q: Former Smoker Used Tobacco, but Quit: Yes Month/Year Tobacco Last Used: 2012 - Caffeine Use Caffeine Use: Reports: Coffee, Soda - Recreational Drug Use Recreational Drug Use: No H&P Review of Systems - Review of Systems: Review Of Systems: See Below General: Reports: Decreased Appetite. Denies: Fever, Chills HEENT: Reports: No Symptoms Pulmonary: Denies: Shortness of Breath, Wheezing Cardiovascular: Denies: Chest Pain Gastrointestinal: Reports: Abdominal Pain, Anorexia, Decreased Appetite, Nausea , Vomiting. Denies: Diarrhea, Distension, Hematemesis, Hematochezia Genitourinary: Reports: No Symptoms Musculoskeletal: Reports: No Symptoms Skin: Reports: No Symptoms Psychiatric: Reports: No Symptoms Neurological: Reports: No Symptoms Hematologic/Lymphatic: Reports: No Symptoms Immunologic: Reports: No Symptoms Exam - Exam Exam: See Below - Vital Signs Vital Signs: Last Vital Signs Temp 97.6 F 02/25/19 05:13 Pulse 76 02/25/19 05:13 Resp 18 02/25/19 05:13 BP 137/71 02/25/19 05:13 Pulse Ox 100 02/25/19 05:13 Weight: 204 lb 2.369 oz - Exam General: Alert, Oriented, Cooperative, Mild Distress HEENT: Conjunctiva Clear, EACs Clear, Pupils Equal, Pupils Reactive. No: Scleral Icterus Neck: Supple, Trachea Midline Lungs: Clear to Auscultation, Normal Respiratory Effort Cardiovascular: Regular Rate, Regular Rhythm GI/Abdominal Exam: Normal Bowel Sounds, Soft, Non-Tender, No Mass. No: Guarding , Rigid, Rebound (Male) Exam: No Hernia Rectal (Males) Exam: Deferred Back Exam: Normal Inspection, Full Range of Motion Extremities: Normal Inspection, Normal Range of Motion, Non-Tender Peripheral Pulses: 4+: Posterior Tibial (L), Posterior Tibial (R), Dorsalis Pedis (L), Dorsalis Pedis (R) Skin: Warm, Dry, Intact Neurological: Cranial Nerves Intact, Reflexes Equal Bilateral Psychiatric: Alert, Normal Affect, Normal Mood - Patient Data Lab Results Last 24 hrs: Laboratory Results - last 24 hr 02/25/19 02/25/19 Range/Units 05:20 05:20 WBC 10.80 (4.0-11.0) K/uL RBC 5.90 (4.50-5.90) M/uL Hgb 17.0 (13.0-17.0) g/dL Hct 48.7 (38.0-50.0) % MCV 82.5 (80.0-98.0) fL MCH 28.8 (27.0-32.0) pg MCHC 34.9 (31.0-37.0) g/dL RDW Std Deviation 40.1 (28.0-62.0) fl RDW Coeff of Jose 13 (11.0-15.0) % Plt Count 237 (150-400) K/uL MPV 8.70 (7.40-12.00) fL Neut % (Auto) 58.9 (48.0-80.0) % Lymph % (Auto) 33.3 (16.0-40.0) % [place] % (Auto) 7.2 (0.0-15.0) % Eos % (Auto) 0.3 (0.0-7.0) % Baso % (Auto) 0.3 (0.0-1.5) % Neut # (Auto) 6.4 H (1.4-5.7) K/uL Lymph # (Auto) 3.6 H (0.6-2.4) K/uL [place] # (Auto) 0.8 (0.0-0.8) K/uL Eos # (Auto) 0.0 (0.0-0.7) K/uL Baso # (Auto) 0.0 (0.0-0.1) K/uL Nucleated RBC % 0.0 /100WBC Nucleated RBCs # 0 K/uL Sodium 141 (136-148) mmol/L Potassium 3.9 (3.5-5.1) mmol/L Chloride 103 (98-107) mmol/L Carbon Dioxide 24.0 (21.0-32.0) mmol/L BUN 16 (7.0-18.0) mg/dL Creatinine 1.2 (0.8-1.3) mg/dL Est Cr Clr Drug Dosing 83.44 mL/min Estimated GFR (MDRD) > 60.0 ml/min Glucose 122 H (74-106) mg/dL Calcium 9.4 (8.5-10.1) mg/dL Total Bilirubin 0.6 (0.2-1.0) mg/dL AST 48 H (15-37) IU/L ALT 101 H (14-63) IU/L Alkaline Phosphatase 72 (46-116) U/L Total Protein 8.9 H (6.4-8.2) g/dL Albumin 4.5 (3.4-5.0) g/dL Globulin 4.4 H (2.6-4.0) g/dL Albumin/Globulin Ratio 1.0 (0.9-1.6) Result Diagrams: 02/25/19 05:20 02/25/19 05:20 - Problem List (1) Nausea & vomiting SNOMED Code(s): 91326788 ICD Code: R11.2 - NAUSEA WITH VOMITING, UNSPECIFIED Status: Acute Priority: Medium Current Visit: Yes Qualifiers: Vomiting Intractability: unspecified (2) Gastroenteritis SNOMED Code(s): 70818875 ICD Code: K52.9 - NONINFECTIVE GASTROENTERITIS AND COLITIS, UNSPECIFIED Status: Acute Priority: Low Current Visit: Yes Problem List Initiated/Reviewed/Updated: Yes Orders Last 24hrs: Active Orders 24 hr Category Date Time Status Patient Status [ADT] Routine ADT 02/25/19 07:37 Active Intake and Output [RC] QSHIFT Care 02/25/19 07:37 Active Notify Provider Consults [RC] ASDIRECTED Care 02/25/19 06:51 Active [place] [RC] ASDIRECTED Care 02/25/19 07:37 Active Vital Signs [RC] PER UNIT ROUTINE Care 02/25/19 07:37 Active Consult to Physician [CONS] Stat Cons 02/25/19 06:50 Active Clear Liquid Diet [DIET] Diet 02/25/19 Lunch Active Lactated Ringers [Ringers, Lactated] 1,000 ml Med 02/25/19 07:45 Active IV ASDIRECTED Metoclopramide [Reglan] Med 02/25/19 07:45 Active 10 mg IV Q6H Ondansetron [Zofran] Med 02/25/19 07:38 Active 4 mg IVPUSH Q6H PRN Resuscitation Status Routine Resus Stat 02/25/19 07:37 Ordered Medication Orders Lactated Ringer's (Ringers, Lactated) 1,000 mls @ 125 mls/hr IV ASDIRECTED ROXIE Metoclopramide HCl (Reglan) 10 mg IV Q6H ROXIE Ondansetron HCl (Zofran) 4 mg IVPUSH Q6H PRN PRN Reason: Nausea/Vomiting Assessment/Plan Comment:: 6 days post op with nausea and vomiting. Possible gastroenteritis. No evidence of obstruction or post op abscess. PLAN: Admit observation. IV fluids. Reglan and Zofran. - Mortality Measure Prognosis:: Good
[2019-02-25] MEDS: Lactated Ringers 1,000 ML IV SCH ×2 (08:31→16:20)
[2019-02-25] MEDS: Metoclopramide 10 MG/2 ML SDV IV SCH ×3 (08:31→20:29)
[2019-02-26] MEDS: Lactated Ringers 1,000 ML IV SCH (01:30)
[2019-02-26] MEDS: Metoclopramide 10 MG/2 ML SDV IV SCH ×2 (01:37→07:39)
--- NOTE | 2019-02-28 13:42 | PCM.DCSUM1 ---
Discharge Summary - Hospital Course Free Text/Narrative:: 28 y/o gentleman admitted with nausea and vomiting. He had undergone a laparoscopic appendectomy on 02/19. He did well postoperatively and was discharged on POD 1. He developed nausea, vomiting and abdominal pain on 02/24 and presented back to the ER with those symptoms. CT scan did not reveal any acute intra-abdominal process and he was admitted with a tentative diagnosis of dehydration and gastroenteritis. - Discharge Data Discharge Date: 02/26/19 Discharge Disposition: Home, Self-Care 01 Condition: Good - Referral to Home Health Primary Care Physician: PCP None - Discharge Diagnosis/Problem(s) (1) Nausea & vomiting SNOMED Code(s): 30045953 ICD Code: R11.2 - NAUSEA WITH VOMITING, UNSPECIFIED Status: Acute Priority: Medium Qualifiers: Vomiting Intractability: unspecified (2) Gastroenteritis SNOMED Code(s): 96577747 ICD Code: K52.9 - NONINFECTIVE GASTROENTERITIS AND COLITIS, UNSPECIFIED Status: Acute Priority: Low - Patient Summary/Data Consults: Consultations 02/25/19 06:50 Consult to Physician [CONS] Stat - Patient Instructions Diet: Usual Diet as Tolerated Activity: No Lifting Over 25 Pounds, Rest and Relax Today Driving: May Drive Today Showering/Bathing: May Shower Notify Provider of: Fever, Nausea and/or Vomiting Other/Special Instructions: See Dr. Loja in one month. - Discharge Plan *PRESCRIPTION DRUG MONITORING PROGRAM REVIEWED*: Not Applicable *COPY OF PRESCRIPTION DRUG MONITORING REPORT IN PATIENT MIKE: Not Applicable Home Medications: Home Meds Ketorolac [Toradol] 10 mg PO TID PRN 02/19/19 [History] Ondansetron [Zofran] 4 mg PO Q8HR PRN 02/19/19 [History] Patient Handouts: Viral Gastroenteritis, Adult, [id number] Referrals: Don Loja MD [Physician] - 04/02/19 9:00 am - Discharge Summary/Plan Comment DC Time >30 min.: No - General Info Date of Service: 02/26/19 Functional Status: Reports: Pain Controlled, Tolerating Diet, Ambulating, Urinating - Review of Systems General: Denies: Fever, Weakness, Fatigue, Malaise, Chills HEENT: Reports: No Symptoms Pulmonary: Denies: Shortness of Breath, Pleuritic Chest Pain Cardiovascular: Denies: Chest Pain Gastrointestinal: Denies: Abdominal Pain, Constipation, Decreased Appetite, Diarrhea, Nausea, Vomiting Genitourinary: Denies: Dysuria, Frequency, Burning Musculoskeletal: Reports: No Symptoms Skin: Reports: No Symptoms Neurological: Reports: No Symptoms Psychiatric: Reports: No Symptoms - Patient Data Vitals - Most Recent: Last Vital Signs Temp 97.5 F 02/26/19 07:53 Pulse 62 02/26/19 07:53 Resp 16 02/26/19 07:53 BP 132/72 02/26/19 07:53 Pulse Ox 97 02/26/19 07:53 Weight - Most Recent: 202 lb 2.622 oz Med Orders - Current: Current Medications Discontinued Medications Hydromorphone HCl (Dilaudid) 1 mg IVPUSH ONETIME ONE Stop: 02/25/19 06:36 Last Admin: 02/25/19 06:39 Dose: 1 mg Sodium Chloride (Normal Saline) 1,000 mls @ 999 mls/hr IV .Bolus ONE Stop: 02/25/19 06:24 Last Admin: 02/25/19 05:31 Dose: 999 mls/hr Lactated Ringer's (Ringers, Lactated) 1,000 mls @ 125 mls/hr IV ASDIRECTED [facility] Last Admin: 02/26/19 01:30 Dose: 125 mls/hr Iopamidol (Isovue Multipack-370 (76%)) 100 ml IVPUSH ONETIME STA Stop: 02/25/19 05:54 Last Admin: 02/25/19 05:54 Dose: 100 ml Ketorolac Tromethamine (Toradol) 30 mg IVPUSH ONETIME ONE Stop: 02/25/19 05:25 Last Admin: 02/25/19 05:31 Dose: 30 mg Metoclopramide HCl (Reglan) 10 mg IV Q6H [facility] Last Admin: 02/26/19 07:39 Dose: 10 mg Ondansetron HCl (Zofran) 4 mg IVPUSH ONETIME ONE Stop: 02/25/19 05:25 Last Admin: 02/25/19 05:32 Dose: 4 mg Ondansetron HCl (Zofran) 4 mg IVPUSH Q6H PRN PRN Reason: Nausea/Vomiting - Exam General: Reports: Alert, Oriented, Cooperative, No Acute Distress HEENT: Reports: Pupils Equal, Pupils Reactive, EOMI Neck: Reports: Supple, Trachea Midline Lungs: Reports: Clear to Auscultation, Normal Respiratory Effort Cardiovascular: Reports: Regular Rate, Regular Rhythm, No Murmurs. Denies: Tachycardia GI/Abdominal Exam: Normal Bowel Sounds, Soft, Non-Tender, No Mass. No: Guarding , Rigid, Rebound (Male) Exam: No Hernia Back Exam: Reports: Normal Inspection Extremities: Normal Inspection Skin: Reports: Warm, Dry, Intact Wound/Incisions: Reports: Healing Well Neurological: Reports: No New Focal Deficit Psy/Mental Status: Reports: Alert, Normal Affect, Normal Mood
== END 2019-02-26 09:30 | disposition home or self-care (01) ==
LOC: MW.ED 05:09 → MW.MS 07:25
PROVIDERS: ADMIT Surgery; ATTEND Surgery
DX: R11.2 Nausea with vomiting, unspecified (principal); K52.9 Noninfective gastroenteritis and colitis, unspecified; E66.9 Obesity, unspecified; Z87.891 Personal history of nicotine dependence; Z90.49 Acquired absence of other specified parts of digestive tract; Z68.32 Body mass index [BMI] 32.0-32.9, adult
CPT/HCPCS: 36415; 74177; 80053; 85025; 96361; 96374; 96375; 96376; 99285; G0378; J1170; J1885; J2405; J2765; J7040; J7120; Q9967